=== PATIENT | male | born 1995 | race Native Hawaiian/Other Pacific Islander ===

== ENCOUNTER 2018-09-18 01:23 | Emergency (ER) | payer OTHER ==
--- NOTE | 2018-09-18 01:56 | C.PDOC ---
History Of Present Illness 23 year old male presents to the emergency department with complaints of left earache with positive bloody drainage. Patient complains of URI symptoms for the past week, and states that he felt a pop in his left ear yesterday. He states that he used OTC ear drops and shortly after started experiencing the bloody drainage. Patient denies fever, and states that his hearing is minimally decreased. Time Seen by Provider: 09/18/18 01:37 Chief Complaint (Nursing): ENT Problem History Per: Patient History/Exam Limitations: None Onset/Duration Of Symptoms: Days (1) Current Symptoms Are (Timing): Still Present Quality (Ear): Discharge, Other (minimally decreased hearing) Past Medical History Reviewed: Historical Data, Nursing Documentation, Vital Signs Vital Signs: Last Vital Signs Temp 97.9 F 09/18/18 01:32 Pulse 90 09/18/18 01:32 Resp 14 09/18/18 01:32 BP 148/100 H 09/18/18 01:32 Pulse Ox 97 09/18/18 01:32 - Medical History PMH: No Chronic Diseases Surgical History: No Surg Hx Family History: States: No Known Family Hx - Social History Hx Alcohol Use: Yes Hx Substance Use: No - Immunization History Hx Tetanus Toxoid Vaccination: No Hx Influenza Vaccination: No Hx Pneumococcal Vaccination: No Review Of Systems Except As Marked, All Systems Reviewed And Found Negative. Constitutional: Negative for: Fever, Chills ENT: Positive for: Ear Discharge, Other (minimally decreased hearing) Physical Exam - Physical Exam Appears: Non-toxic, No Acute Distress Skin: Warm, Dry Head: Atraumatic, Normacephalic Eye(s): bilateral: Normal Inspection, PERRL, EOMI Ear(s): Left: Other (small perforation to the left eardrum with erythema of ear canal. No active drainage or effusion, no tragal tenderness.) Nose: Normal Oral Mucosa: Moist Tongue: Normal Appearing, No Swelling Lips: Normal Appearing, No Swelling Throat: Normal, No Erythema, No Exudate Neck: Normal, Supple, No Other (swelling) Neurological/Psych: Oriented x3, Normal Speech, Normal Cognition Gait: Steady ED Course And Treatment O2 Sat by Pulse Oximetry: 97 (RA) Pulse Ox Interpretation: Normal Progress Note: Patient instructed to avoid putting objects or drops in ear. Patient instructed to follow-up with ENT physician. Disposition Counseled Patient/Family Regarding: Diagnosis, Need For Followup - Disposition Disposition: HOME/ ROUTINE Disposition Time: 01:53 Condition: STABLE Additional Instructions: Take medications as directed Follow up with ENT on wednesday Avoid drops in ear Take zyrtec for nasal congestion/ use afrin nose drops oTC Return to ER if worse Prescriptions: Amoxicillin/Clavulanate [Augmentin 500 MG-125 MG] 1 tab PO TID #21 tab Instructions: Ruptured Eardrum (DC) Forms: [employer] (Armenian) - Clinical Impression Clinical Impression: Perforated left tympanic membrane on examination - PA / DIRECTOR OF INSTRUMENTAL MUSIC / Resident Statement MD/DO has reviewed & agrees with the documentation as recorded. - Scribe Statement The provider has reviewed the documentation as recorded by the Scribe (Luis Armando Saleh) All medical record entries made by the Scribe were at my direction and personally dictated by me. I have reviewed the chart and agree that the record accurately reflects my personal performance of the history, physical exam, medical decision making, and the department course for this patient. I have also personally directed, reviewed, and agree with the discharge instructions and disposition.
[2018-09-18 02:06] VITALS: BP 144/92; PULSE 86; RESP 20; TEMP 98.4
[2018-09-18 02:45] VITALS: O2SAT 97
== END 2018-09-18 02:06 | disposition home or self-care (01) ==
LOC: C.ER 01:23
DX: H72.92 Unspecified perforation of tympanic membrane, left ear (principal)